=== PATIENT | female | born 1940 | race Caucasian/White ===

== ENCOUNTER 2018-09-02 13:15 | Emergency (ER) | payer OTHER ==
--- NOTE | 2018-09-02 14:37 | EDPHY ---
H & P Time Seen by Provider: 09/02/18 13:37 HPI/ROS: HPI Right leg pain, history of DVT. 78-year-old female by private vehicle. 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 She is currently on Coumadin. She tells me that her last INR was checked 1 month ago and she was therapeutic at that time. She presents to the emergency department with complaint of right lower extremity pain and concerned about DVT in the right lower extremity. She denies any history of trauma. She describes the pain as right lateral calf extending up through the lateral aspect of the popliteal area to the distal posterior thigh. She describes it as an aching sensation. No loss of sensation or weakness in her lower extremities. No back pain. She denies any chest pain or shortness of breath. No other complaints. The patient reports the pain does not seem to be worse with exertion or rest. ROS: Constitutional: No fever, no chills. No weakness. Respiratory: No cough. No shortness of breath. Cardiac: No chest pain, no palpitations. Gastrointestinal: No abdominal pain, no vomiting, no diarrhea. Musculoskeletal: No back pain. No neck pain. As above. Skin: No rashes. Neurological: No headache. No focal weakness or altered sensation. Past medical history: Colon surgery, ruptured ovarian cyst, hypertension, as above. Social history: Nonsmoker. No alcohol. She lives with her and son. Currently here by herself. Physical Exam: General Appearance: Alert, no distress. This patient is responding to questions appropriately and in full sentences. This patient appears well- hydrated and well-nourished. Eyes: Pupils equal and round no pallor or injection. No lid edema, erythema or injection. Neurological: Motor sensory function is grossly intact. Cranial nerves are normal. Gait is normal. Skin: Warm and dry, no rashes. Musculoskeletal: Neck is supple and nontender. Extremities are symmetrical. All joints range without pain or impingement in the bilateral lower extremities. She has some vague tenderness on palpation which is mild involving the lateral aspect of the right calf musculature extending up through the popliteal fossa and lower lateral thigh musculature. No soft tissue changes. No associated erythema, warmth, edema. No ecchymosis noted. No knee effusions. Both lower extremities are neurovascularly intact. Negative Lefty sign bilaterally. No palpable cords appreciated bilaterally. Psychiatric: No agitation. No depression. Database: EKG: Imaging: Bilateral venous Doppler ultrasounds of the lower extremities: Negative for DVT. Olsen cyst noted bilaterally. Results were discussed with staff radiologist Dr. Suman Marshall. Procedures: Emergency department course: Triage vital signs reviewed and are normal. Patient sent for ultrasound. PT will be checked. She has not had this done about a month. 3:00 p.m., results of diagnostic workup discussed with the patient. She is therapeutic on her Coumadin. She feels comfortable going home at this time and I feel she is safe for discharge. I feel that her presentation is consistent with an osteoarthritis. Possibly a meniscal injury. I will have her follow up with the primary care physician for re-evaluation in 2-3 days. She can then be referred to Orthopedics as needed by her primary care physician. Return to emergency department precautions reviewed with her. She is in agreement with this plan. All of her questions were answered. She was discharged home in good condition. Differential Diagnosis: The differential diagnosis on this patient includes but is not limited to right calf strain, osteoarthritis, meniscal injury. DVT, fracture, subluxation, dislocation of the right lower extremity, intermittent claudication unlikely. This represents a partial list of diagnoses considered. These considerations are based on history, physical exam, past history, reassessment and diagnostic testing. Smoking Status: Never smoked Constitutional: Initial Vital Signs Temperature (C) 36.3 C 09/02/18 13:22 Heart Rate 67 09/02/18 13:22 Respiratory Rate 18 09/02/18 13:22 Blood Pressure 139/70 H 09/02/18 13:22 O2 Sat (%) 94 09/02/18 13:22 O2 Delivery Mode Room Air Allergies/Adverse Reactions: No Known Allergies Allergy (Unverified 09/02/18 13:21) Home Medications: Medication Instructions Recorded Ambien 09/02/18 Carvedilol 09/02/18 Lorazepam 09/02/18 Warfarin Sodium 09/02/18 Medical Decision Making - Diagnostics Imaging Results: Imaging Impressions Extremity Venous Study 09/02/18 13:37 Impression: 1. No deep venous thrombosis bilateral legs. 2. Bilateral Olsen's cysts. Findings and recommendations discussed with Emergency Department physician, Emily Clancy MD at 14:32 hour, 09/02/2018. Final report concurs with initial preliminary interpretation. - Data Points Laboratory Results: 09/02/18 14:33 PT 25.0 SEC H SEC (12.0-15.0) INR 2.40 H (0.83-1.16) Departure - Departure Disposition: Home, Routine, Self-Care Clinical Impression: History of DVT (deep vein thrombosis), Knee pain, right Condition: Good Instructions: Knee Pain (ED), Deep Vein Thrombosis Prevention (ED) Additional Instructions: Read and follow provided instructions. Follow-up with your primary care physician in 2-3 days for re-evaluation of your right knee. I feel your pain is most likely from osteoarthritis verses a possible meniscal injury. Your primary care physician can order an MRI of your right knee which may have diagnostic value as well as refer you to an exchange specialist for further evaluation. Continue taking your Coumadin and other medications as prescribed. Return to the emergency department for worsening pain, swelling, discoloration, loss of sensation or other serious concerns. Referrals: Gladys Saleh MD [Primary Care Provider] - As per Instructions
[2018-09-02 14:52] LABS: INR 2.4 (0.83-1.16)
[2018-09-02 15:05] VITALS: BP 133/71
== END 2018-09-02 15:02 | disposition home or self-care (01) ==
DX: M25.561 Pain in right knee (principal); M71.21 Synovial cyst of popliteal space [Baker], right knee; M71.22 Synovial cyst of popliteal space [Baker], left knee; Z86.718 Personal history of other venous thrombosis and embolism; Z86.711 Personal history of pulmonary embolism; Z79.01 Long term (current) use of anticoagulants